=== PATIENT | male | born 1970 | race Caucasian/White ===

== ENCOUNTER 2017-12-28 12:35 | Inpatient (IN) | payer MEDICAID, OTHER ==
[2017-12-28] MEDS: SOD CHLORIDE 0.9% IV (14:16)
[2017-12-28 14:34] LABS: ADD MAN DIFF? NO
[2017-12-28 14:51] LABS: INR 0.81; PROTIME 11.2 Sec (11.9-14.9); PT RATIO 0.9
[2017-12-28 14:54] LABS: ALANINE AMINOTRANSFERASE 30 IU/L (13-69); ALKALINE PHOSPHATASE 152 IU/L (42-121); ANION GAP 18 (8-16); ASPARTATE AMINO TRANSFERASE 20 IU/L (15-46); BILIRUBIN,INDIRECT 0.5 mg/dl (0-1.1); BILIRUBIN,TOTAL 0.5 mg/dl (0.2-1.3); BLOOD UREA NITROGEN 9 mg/dl (7-20); CALCIUM 9.1 mg/dl (8.4-10.2); CARBON DIOXIDE 26 mmol/L (21-31); CHLORIDE 100 mmol/L (97-110); CREATININE 0.58 mg/dl (0.61-1.24); GLUCOSE 340 mg/dl (70-220); POTASSIUM 4.4 mmol/L (3.5-5.1); SODIUM 140 mmol/L (135-144)
[2017-12-28 14:55] LABS: ALBUMIN 3.9 g/dl (3.3-4.9); ALBUMIN/GLOBULIN RATIO 1.11; TOTAL PROTEIN 7.4 g/dl (6.1-8.1)
[2017-12-28 15:02] LABS: LACTIC ACID 3.3 mmol/L (0.5-2.0)
[2017-12-28 15:03] LABS: WHITE BLOOD COUNT 8.6 10^3/ul (4.8-10.8)
[2017-12-28 15:03] LABS: BASOPHILS % 0.2 % (0.0-2.0); EOSINOPHILS # 0.1 10^3/ul (0.0-0.5); HEMATOCRIT 42.3 % (42.0-52.0); HEMOGLOBIN 15.4 g/dl (14.0-18.0); LYMPHOCYTES # 1.7 10^3/ul (0.8-2.9); LYMPHOCYTES % 19.5 % (15.0-51.0); MEAN CORPUSCULAR HEMOGLOBIN 29.3 pg (29.0-33.0); MEAN CORPUSCULAR HGB CONC 36.4 g/dl (32.0-37.0); MEAN CORPUSCULAR VOLUME 80.6 fl (82.0-101.0); MEAN PLATELET VOLUME 10.7 fl (7.4-10.4); MONOCYTE # 0.6 10^3/ul (0.3-0.9); MONOCYTES % 7.2 % (0.0-11.0); NEUTROPHIL # 6.2 10^3/ul (1.6-7.5); NEUTROPHILS % 71.8 % (39.0-77.0); PLATELET COUNT 242 10^3/UL (140-415); RED BLOOD COUNT 5.25 10^6/ul (4.70-6.10); RED CELL DISTRIBUTION WIDTH 12.3 % (11.5-14.5)
[2017-12-28] MEDS: SOD CHLORIDE 0.9% 100 ML (15:38)
[2017-12-28] MEDS: IOHEXOL 300MG/ML 150 ML BTL (15:39)
[2017-12-28] MEDS: PIPER-TAZO 3.375 GM IV (PMX) 100 ML IVPB ×2 (15:47→23:41)
[2017-12-28] MEDS: ONDANSETRON 4 MG INJ IV ×2 (16:19→20:30)
[2017-12-28] MEDS: VANCOMYCIN 1 GM (PMX) 250 ML IVPB (16:19)
[2017-12-28] MEDS: morphine 4 MG/ML VIAL IV (16:19)
[2017-12-28] MEDS: SODIUM CHLORIDE 0.9% 1L BAG IV* (16:22)
[2017-12-28 17:07] LABS: LACTIC ACID 1.7 mmol/L (0.5-2.0)
[2017-12-28] MEDS ORDERED: ONDANSETRON 4 MG INJ IV (17:30)
[2017-12-28 17:48] LABS: HEMOGLOBIN A1C 11.5 % (0-5.9)
[2017-12-28] MEDS ORDERED: GLUCOSE GEL 15 GRAM TUBE PO ×2 (18:00)
[2017-12-28] MEDS ORDERED: NACL 0.9% 3 ML SYG IV (18:00)
[2017-12-28] MEDS ORDERED: GLUCOSE GEL 15 GRAM TUBE BUCCAL (18:00)
[2017-12-28] MEDS ORDERED: DEXTROSE 50% 50 ML SYRINGE IV ×2 (18:00)
[2017-12-28] MEDS ORDERED: GLUCAGON 1 MG INJ IM (18:00)
[2017-12-28] MEDS ORDERED: VANCOMYCIN IV PER PHARMACY XX (18:00)
[2017-12-28] MEDS: INSULIN ASPART [NOVOLOG] 3 ML PEN SC ×3 (18:01→23:26)
[2017-12-28] MEDS: LIDOCAINE 1%/EPI 30 ML INJ INJ (18:20)
[2017-12-28 19:55] LABS: LACTIC ACID 2.6 mmol/L (0.5-2.0)
[2017-12-28] MEDS: ACETAMINOPHEN 325 MG TAB PO (20:28)
[2017-12-28] MEDS: HYDROmorphONE 0.5 MG/0.5 ML SYG IV (20:30)
[2017-12-28] MEDS: VANCOMYCIN 500MG/NS (PMX) 100 ML IVPB (20:30)
[2017-12-28] MEDS: ACETAMINOPHEN 500 MG TAB PO (20:31)
[2017-12-28] MEDS: IBUPROFEN 800 MG TAB PO (20:35)
[2017-12-28] MEDS: INSULIN GLARGINE [LANtus] 3 ML PEN SC (23:25)
[2017-12-29] MEDS: ACCU-CHEK XX (02:00)
[2017-12-29] MEDS: VANCOMYCIN 1 GM in 250 ML IVPB ×3 (04:04→20:37)
[2017-12-29] MEDS: HYDROCODONE/APAP (5/325) TAB PO ×2 (05:10→12:10)
[2017-12-29] MEDS: PIPER-TAZO 3.375 GM IV (PMX) 100 ML IVPB ×3 (05:54→22:48)
[2017-12-29 06:38] LABS: ADD MAN DIFF? NO
[2017-12-29 06:47] LABS: BASOPHILS % 0.2 % (0.0-2.0); EOSINOPHILS # 0.1 10^3/ul (0.0-0.5); EOSINOPHILS % 0.6 % (0.0-7.0); HEMATOCRIT 38.2 % (42.0-52.0); HEMOGLOBIN 13.5 g/dl (14.0-18.0); LYMPHOCYTES # 1.2 10^3/ul (0.8-2.9); LYMPHOCYTES % 10.8 % (15.0-51.0); MEAN CORPUSCULAR HEMOGLOBIN 29.1 pg (29.0-33.0); MEAN CORPUSCULAR HGB CONC 35.3 g/dl (32.0-37.0); MEAN CORPUSCULAR VOLUME 82.3 fl (82.0-101.0); MEAN PLATELET VOLUME 10.6 fl (7.4-10.4); MONOCYTES % 8.6 % (0.0-11.0); NEUTROPHIL # 8.9 10^3/ul (1.6-7.5); NEUTROPHILS % 79.4 % (39.0-77.0); PLATELET COUNT 230 10^3/UL (140-415); RED BLOOD COUNT 4.64 10^6/ul (4.70-6.10); RED CELL DISTRIBUTION WIDTH 12.1 % (11.5-14.5)
[2017-12-29 06:47] LABS: WHITE BLOOD COUNT 11.3 10^3/ul (4.8-10.8)
[2017-12-29 07:03] LABS: ALANINE AMINOTRANSFERASE 29 IU/L (13-69); ALBUMIN 3.4 g/dl (3.3-4.9); ALBUMIN/GLOBULIN RATIO 1.17; ALKALINE PHOSPHATASE 117 IU/L (42-121); ANION GAP 11 (8-16); ASPARTATE AMINO TRANSFERASE 16 IU/L (15-46); BILIRUBIN,INDIRECT 0.4 mg/dl (0-1.1); BILIRUBIN,TOTAL 0.4 mg/dl (0.2-1.3); BLOOD UREA NITROGEN 9 mg/dl (7-20); CALCIUM 8.6 mg/dl (8.4-10.2); CARBON DIOXIDE 29 mmol/L (21-31); CHLORIDE 101 mmol/L (97-110); CREATININE 0.69 mg/dl (0.61-1.24); GLUCOSE 260 mg/dl (70-220); POTASSIUM 3.9 mmol/L (3.5-5.1); SODIUM 137 mmol/L (135-144); TOTAL PROTEIN 6.3 g/dl (6.1-8.1)
[2017-12-29 07:04] LABS: HEMOGLOBIN A1C 11.4 % (0-5.9)
[2017-12-29] MEDS: INSULIN ASPART [NOVOLOG] 3 ML PEN SC ×7 (08:34→20:40)
[2017-12-29] MEDS: metFORMIN 500 MG TAB PO ×2 (14:13→17:29)
[2017-12-29] MEDS ORDERED: INSULIN ASPART [NOVOLOG] 3 ML PEN SC (18:05)
[2017-12-29] MEDS ORDERED: hydrALAzine 20 MG INJ IV (20:30)
[2017-12-29] MEDS: INSULIN GLARGINE [LANtus] 3 ML PEN SC (20:38)
[2017-12-29] MEDS: ACETAMINOPHEN 325 MG TAB PO (20:40)
[2017-12-30] MEDS ORDERED: ACCU-CHEK XX (02:00)
[2017-12-30] MEDS: ACCU-CHEK XX (02:00)
[2017-12-30 03:13] LABS: ADD MAN DIFF? NO
[2017-12-30 03:16] LABS: WHITE BLOOD COUNT 9.4 10^3/ul (4.8-10.8)
[2017-12-30 03:16] LABS: BASOPHILS % 0.1 % (0.0-2.0); EOSINOPHILS # 0.1 10^3/ul (0.0-0.5); EOSINOPHILS % 1.4 % (0.0-7.0); HEMATOCRIT 36.8 % (42.0-52.0); LYMPHOCYTES # 2.1 10^3/ul (0.8-2.9); LYMPHOCYTES % 22.2 % (15.0-51.0); MEAN CORPUSCULAR HEMOGLOBIN 29.1 pg (29.0-33.0); MEAN CORPUSCULAR HGB CONC 35.3 g/dl (32.0-37.0); MEAN CORPUSCULAR VOLUME 82.5 fl (82.0-101.0); MEAN PLATELET VOLUME 10.3 fl (7.4-10.4); MONOCYTE # 0.9 10^3/ul (0.3-0.9); MONOCYTES % 9.4 % (0.0-11.0); NEUTROPHIL # 6.3 10^3/ul (1.6-7.5); NEUTROPHILS % 66.7 % (39.0-77.0); PLATELET COUNT 221 10^3/UL (140-415); RED BLOOD COUNT 4.46 10^6/ul (4.70-6.10); RED CELL DISTRIBUTION WIDTH 12.5 % (11.5-14.5)
[2017-12-30 03:44] LABS: ANION GAP 12 (8-16); BLOOD UREA NITROGEN 11 mg/dl (7-20); CALCIUM 9.1 mg/dl (8.4-10.2); CARBON DIOXIDE 31 mmol/L (21-31); CHLORIDE 99 mmol/L (97-110); CHOL/HDL RATIO 6.2 RATIO; CHOLESTEROL 238 mg/dl (100-200); CREATININE 0.76 mg/dl (0.61-1.24); GLUCOSE 261 mg/dl (70-220); HDL CHOLESTEROL 38 mg/dl (27-67); LDL CHOLESTEROL,CALCULATED 122 mg/dl; POTASSIUM 3.8 mmol/L (3.5-5.1); SODIUM 138 mmol/L (135-144); TRIGLYCERIDES 389 mg/dl (0-149)
[2017-12-30 03:58] LABS: VANCOMYCIN,TROUGH 8.3 ug/ml (10.0-20.0)
[2017-12-30] MEDS: VANCOMYCIN 1.25 GM in SOD CHLORIDE 0.9% 250 ML IVPB ×3 (04:41→20:11)
[2017-12-30] MEDS: metFORMIN 500 MG TAB PO ×2 (08:41→17:30)
[2017-12-30] MEDS: INSULIN ASPART [NOVOLOG] 3 ML PEN SC ×7 (08:42→20:19)
[2017-12-30] MEDS: PIPER-TAZO 3.375 GM IV (PMX) 100 ML IVPB ×3 (09:40→23:22)
[2017-12-30] MEDS ORDERED: VANCOMYCIN 1 GM 250 ML IVPB (12:00)
[2017-12-30] MEDS: ACETAMINOPHEN 325 MG TAB PO (15:00)
[2017-12-30 15:36] LABS: C-PEPTIDE 2.26 ng/mL (0.80-3.85)
[2017-12-30] MEDS: INSULIN GLARGINE [LANtus] 3 ML PEN SC (20:18)
[2017-12-31] MEDS: ACCU-CHEK XX (02:00)
[2017-12-31] MEDS: VANCOMYCIN 1.25 GM in SOD CHLORIDE 0.9% 250 ML IVPB ×2 (03:51→15:33)
[2017-12-31] MEDS: PIPER-TAZO 3.375 GM IV (PMX) 100 ML IVPB ×2 (06:52→13:01)
[2017-12-31] MEDS: INSULIN ASPART [NOVOLOG] 3 ML PEN SC ×6 (08:18→17:30)
[2017-12-31] MEDS: metFORMIN 500 MG TAB PO ×2 (08:19→17:42)
[2017-12-31 12:28] LABS: VANCOMYCIN,TROUGH 9.4 ug/ml (10.0-20.0)
[2017-12-31] MEDS ORDERED: VANCOMYCIN 1.5 GM in SOD CHLORIDE 0.9% 250 ML IVPB (20:00)
== END 2017-12-31 19:05 | disposition home or self-care (01) | DRG 581 ==
LOC: FTE 12:35 → PP2 17:31
PROC: 0WJ60ZZ Inspection of Neck, Open Approach (ICD-10-PCS; principal; 2017-12-28)
DX: L03.221 Cellulitis of neck (principal); E11.65 Type 2 diabetes mellitus with hyperglycemia
CPT/HCPCS: 36415; 70450; 70480; 70491; 80048; 80053; 80061; 80202; 82962; 83036; 83605; 84681; 85025; 85610; 85730; 87040; 87070; 96372; 96374; 96375; 96376; 99291-25